=== PATIENT | female | born 1955 | race Caucasian/White ===

== ENCOUNTER → 2017-08-02 | Outpatient (CLI) | payer OTHER ==
[~2017-08-02] MED LIST: BACTRIM,SEPT1 TABLET PO; EMLA 30 GM30 GM TP; GABAPENTIN100 MG PO; GLUCOPHAGE500 MG PO; HYDROCHLOROTHIA25 MG PO; HYDROCODONE BT1 EACH PO; HYDROCORTISONE30 G1 TP; KEFLEX500 MG PO; NEURONTIN100 MG PO; PERCOCET 5/31 TABLET PO; PRINIVIL20 MG PO; SIMVASTATIN40 MG PO; SKELAXIN800 MG PO; ULTRAM50 MG PO
== END | disposition home or self-care (01) ==
LOC: NUC 09:32
DX: M17.0 Bilateral primary osteoarthritis of knee (principal)
CPT/HCPCS: 78306; A9503

== ENCOUNTER 2017-10-30 21:28 | Inpatient (IN) | payer OTHER ==
[~2017-10-30] VITALS: Ht 149.9 cm; Wt 97.7 kg
[2017-10-30 22:21] LABS: HEMATOCRIT 40.3 % (36.0-46.0); HEMOGLOBIN 13.6 G/DL (11.9-15.5); MCH 29.2 PG (29.0-34.0); MCHC 33.7 G/DL (30.0-36.0); MCV 86.7 FL (83-99); PLATELET COUNT 313 K/uL (156-360); RBC DIS.WIDTH-CV 13.6 % (11.8-14.6); RBC DIS.WIDTH-SD 43.1 % (39-53); RED BLOOD COUNT 4.65 M/uL (3.80-5.20); WHITE BLOOD COUNT 13.3 K/uL (4.1-10.2)
[2017-10-30 22:26] LABS: APPEARANCE SL.HAZY ((CLEAR)); BILIRUBIN NEGATIVE; BLOOD NEGATIVE; COLOR YELLOW ((YELLOW)); GLUCOSE (STRIP) NEGATIVE; KETONES 5; LEUKOCYTES NEGATIVE; NITRITE NEGATIVE; PROTEIN (STRIP) 100
[2017-10-30 22:36] LABS: BACTERIA RARE /HPF; EPITHELIAL CELLS RARE /HPF; MUCUS 2+ /LPF; RED BLOOD CELLS 0-5 /HPF (0-5); UCUL ADDED? NO; WHITE BLOOD CELLS 0-5 /HPF (0-5)
[2017-10-30 22:41] LABS: ALBUMIN 3.9 g/dL (3.2-4.8); CHLORIDE 103 mEq/L (99-109); POTASSIUM 4.3 mEq/L (3.7-5.4); SODIUM 138 mEq/L (136-147)
[2017-10-30 22:44] LABS: GLUCOSE 207 mg/dL (70-99)
[2017-10-30 22:46] LABS: TOTAL BILIRUBIN 0.6 mg/dL (0.0-1.0)
[2017-10-30 22:47] LABS: ALKALINE PHOSPHATASE 65 IU/L (3-129); CREATININE 0.8 mg/dL (0.6-1.3); GFR ESTIMATE (CALCULATED) > 59 mL/min/
[2017-10-30 22:49] LABS: AST (GOT) 33 IU/L (2-34); UREA NITROGEN (BUN) 14 mg/dL (9-23)
[2017-10-30 22:50] LABS: ALT (GPT) 23 IU/L (3-49)
[2017-10-31] MEDS ORDERED: ANASTROZOLE1 MG PO (09:49)
[2017-10-31] MEDS ORDERED: LISINOPRIL20 MG PO (09:49)
[2017-10-31] MEDS ORDERED: GLIMEPIRIDE2 MG PO (09:51)
[2017-10-31] MEDS ORDERED: AMOXICILLIN500 MG PO (09:51)
[2017-10-31] MEDS ORDERED: METFORMIN HCL1000 MG PO (09:51)
[2017-10-31] MEDS ORDERED: ENDOCET 5-3251 EACH PO (09:52)
[2017-10-31 13:45] VITALS: BP 202/88
[2017-10-31 19:59] VITALS: BP 160/90
[2017-10-31 21:02] LABS: HEMATOCRIT 33.2 % (36.0-46.0); MCH 28.6 PG (29.0-34.0); MCHC 33.1 G/DL (30.0-36.0); MCV 86.2 FL (83-99); RBC DIS.WIDTH-CV 13.6 % (11.8-14.6); RBC DIS.WIDTH-SD 42.2 % (39-53); RED BLOOD COUNT 3.85 M/uL (3.80-5.20); WHITE BLOOD COUNT 6.7 K/uL (4.1-10.2)
[2017-10-31 21:15] LABS: TRANSFERRIN (TIBC) 279.6 mg/dL (215-380)
[2017-10-31 21:35] LABS: INTER. NORMALIZED RATIO 1.2
[2017-10-31 21:38] LABS: BASOPHIL (%) 0.3 % (0-1); EOSINOPHIL (%) 1.5 % (0-5); EOSINOPHIL COUNT 0.1 K/uL (0-0.3); IMMATURE GRANULOCYTE (%) 0.4 % (0.0-0.7); LYMPHOCYTE (%) 23.5 % (15-42); LYMPHOCYTE COUNT 1.6 K/uL (1.0-2.8); MONOCYTE (%) 7.9 % (3-12); MONOCYTE COUNT 0.5 K/uL (0-0.8); NEUTROPHIL (%) 66.4 % (45-76); NEUTROPHIL COUNT 4.5 K/uL (1.8-6.4); PLAT.SUFFICIENCY ADEQUATE
[2017-10-31 21:39] LABS: PLATELET COUNT 217 K/uL (156-360)
[2017-11-01] VITALS (7 sets, daily range): BP systolic 132–181; BP diastolic 63–83
[2017-11-01 07:04] LABS: BASOPHIL (%) 0.3 % (0-1); EOSINOPHIL (%) 1.1 % (0-5); EOSINOPHIL COUNT 0.1 K/uL (0-0.3); HEMATOCRIT 33.1 % (36.0-46.0); IMMATURE GRANULOCYTE (%) 0.3 % (0.0-0.7); LYMPHOCYTE COUNT 1.1 K/uL (1.0-2.8); MCH 28.8 PG (29.0-34.0); MCHC 33.2 G/DL (30.0-36.0); MCV 86.6 FL (83-99); MONOCYTE (%) 7.5 % (3-12); MONOCYTE COUNT 0.5 K/uL (0-0.8); NEUTROPHIL (%) 73.8 % (45-76); NEUTROPHIL COUNT 4.6 K/uL (1.8-6.4); PLATELET COUNT 214 K/uL (156-360); RBC DIS.WIDTH-CV 13.7 % (11.8-14.6); RBC DIS.WIDTH-SD 42.5 % (39-53); RED BLOOD COUNT 3.82 M/uL (3.80-5.20); WHITE BLOOD COUNT 6.2 K/uL (4.1-10.2)
[2017-11-01 07:21] LABS: CHLORIDE 102 MEQ/L (99-109); CREATININE 0.6 MG/DL (0.6-1.3); GFR ESTIMATE (CALCULATED) > 59 mL/min/; GLUCOSE 125 mg/dL (70-99); POTASSIUM 3.7 MEQ/L (3.7-5.4); SODIUM 137 MEQ/L (136-147); UREA NITROGEN (BUN) 8 mg/dL (9-23)
[2017-11-01 08:31] LABS: C DIFF TOXIN NEGATIVE (NEGATIVE)
[2017-11-01 10:09] LABS: HEPATITIS B SURFACE ANTIGEN Nonreactive
[2017-11-01 10:10] LABS: HEPATITIS C ANTIBODY Nonreactive
[2017-11-01 10:11] LABS: HEPATITIS B SURFACE ANTIBODY Nonreactive
[2017-11-01 10:12] LABS: ANTI-HEPATITIS B CORE (IGM) Nonreactive
[2017-11-01 10:44] LABS: ANTI-HEPATITIS A VIRUS (IGM) Nonreactive
[2017-11-01 12:04] LABS: TROP-I INTERPRETATION NEGATIVE; TROPONIN-I 0.02 ng/mL (0.0-0.30)
[2017-11-01 17:47] LABS: IRON 41 MCG/DL (35-150); TRANSFERRIN (TIBC) 289.7 mg/dL (215-380); TRANSFERRIN SATUR. 14 % (20-55)
[2017-11-01 18:06] LABS: FOLIC ACID (FOLATE) 14.1 NG/ML (5.0-22.0)
[2017-11-02 03:20] VITALS: BP 99/51
[2017-11-02 06:29] LABS: BASOPHIL (%) 0.5 % (0-1); EOSINOPHIL (%) 1.5 % (0-5); EOSINOPHIL COUNT 0.1 K/uL (0-0.3); HEMATOCRIT 32.4 % (36.0-46.0); HEMOGLOBIN 10.6 G/DL (11.9-15.5); IMMATURE GRANULOCYTE (%) 0.3 % (0.0-0.7); LYMPHOCYTE (%) 21.7 % (15-42); LYMPHOCYTE COUNT 1.3 K/uL (1.0-2.8); MCH 28.2 PG (29.0-34.0); MCHC 32.7 G/DL (30.0-36.0); MCV 86.2 FL (83-99); MONOCYTE (%) 8.9 % (3-12); MONOCYTE COUNT 0.5 K/uL (0-0.8); NEUTROPHIL (%) 67.1 % (45-76); NEUTROPHIL COUNT 3.9 K/uL (1.8-6.4); PLATELET COUNT 220 K/uL (156-360); RBC DIS.WIDTH-CV 13.8 % (11.8-14.6); RBC DIS.WIDTH-SD 43.2 % (39-53); RED BLOOD COUNT 3.76 M/uL (3.80-5.20); WHITE BLOOD COUNT 5.9 K/uL (4.1-10.2)
[2017-11-02 06:54] LABS: CHLORIDE 102 MEQ/L (99-109); CREATININE 0.7 MG/DL (0.6-1.3); GFR ESTIMATE (CALCULATED) > 59 mL/min/; GLUCOSE 111 mg/dL (70-99); IRON 45 MCG/DL (35-150); POTASSIUM 3.4 MEQ/L (3.7-5.4); SODIUM 138 MEQ/L (136-147); UREA NITROGEN (BUN) 9 mg/dL (9-23)
[2017-11-02 07:51] LABS: MAGNESIUM 1.4 mg/dl (1.3-2.7)
[2017-11-02 08:15] LABS: FOLIC ACID (FOLATE) 12.8 NG/ML (5.0-22.0)
[2017-11-02 08:18] VITALS: BP 138/66
[2017-11-02] MEDS ORDERED: PANTOPRAZOLE SO40 MG PO (11:08)
[2017-11-02] MEDS ORDERED: Vitamin B-12 SL (11:08)
[2017-11-02] MEDS ORDERED: METRONIDAZOLE500 MG PO (11:08)
[2017-11-02] MEDS ORDERED: AMLODIPINE BESY10 MG PO (11:11)
== END 2017-11-02 14:36 | disposition home or self-care (01) | DRG 392 ==
LOC: EME 21:28 → EDOF 10-31 05:43 → ENRESERV 10-31 05:58 → 2EAST 10-31 13:40 → ENPENDDIS 11-02 → 2EAST 11-02 14:36
PROVIDERS: Hospitalist; Internal Medicine; Specialist
DX: K52.9 Noninfective gastroenteritis and colitis, unspecified (principal); Z68.41 Body mass index [BMI] 40.0-44.9, adult; I10 Essential (primary) hypertension; E78.5 Hyperlipidemia, unspecified; E66.9 Obesity, unspecified; Z92.21 Personal history of antineoplastic chemotherapy; Z90.10 Acquired absence of unspecified breast and nipple; E11.65 Type 2 diabetes mellitus with hyperglycemia; F41.9 Anxiety disorder, unspecified; D25.9 Leiomyoma of uterus, unspecified; I08.1 Rheumatic disorders of both mitral and tricuspid valves; N20.0 Calculus of kidney; E11.9 Type 2 diabetes mellitus without complications; I70.0 Atherosclerosis of aorta; I44.30 Unspecified atrioventricular block; Z92.3 Personal history of irradiation
CPT/HCPCS: 74174; 74176; 76705; 80048; 80053; 81003; 82565; 82607; 82728; 82746; 82948; 83540; 83605; 83735; 84466; 84484; 84520; 85025; 85027; 85610; 86038; 86705; 86706; 86709; 86803; 87177; 87340; 87493; 87506; 93005; 93306; 99281; 99285; J0360; J2405; J3010; J3475; J7120; S0030